=== PATIENT | male | born 1965 | race Caucasian/White ===

== ENCOUNTER 2018-11-02 14:44 | Emergency (ER) | payer OTHER ==
[~2018-11-02] VITALS: Ht 182.9 cm; Wt 77.1 kg
[2018-11-02] MEDS ORDERED: ZOCOR20 MG PO (14:52)
[2018-11-02] MEDS ORDERED: MAGOX 400400 MG PO (14:55)
[2018-11-02] MEDS ORDERED: COQ1050 MG PO (14:56)
[2018-11-02] MEDS ORDERED: VITAMIN D3400 UNIT PO (14:56)
[2018-11-02] MEDS ORDERED: SUPER B-50 COM1 EACH PO (14:56)
[2018-11-02 15:11] LABS: ABSOLUTE BASOPHILS 0.1 thou/uL (0.0-0.2); ABSOLUTE EOSINOPHILS 0.1 thou/uL (0.0-0.7); ABSOLUTE LYMPHOCYTES 5.4 thou/uL (0.8-5.3); ABSOLUTE MONOCYTES 1.3 thou/uL (0.0-1.2); ABSOLUTE NEUTROPHILS 5.4 thou/uL (1.6-8.1); BASOPHILS 0.5 %; EOSINOPHILS 1.2 %; HEMATOCRIT 52.2 % (42.0-52.0); LYMPHOCYTES 44.2 %; MCH 31.8 pg (26.0-34.0); MCHC 34.5 g/dL (28.0-37.0); MCV 92.2 fL (80.0-100.0); MONOCYTES 10.5 %; MPV 8.5 fl. (7.2-11.1); NUCLEATED RBCS 0 /100WBC; PLATELET COUNT* 218 thou/uL (150-400); POLYS 43.6 %; RBC 5.66 mil/uL (4.50-6.00); RDW-CV 12.8 % (10.5-14.5); WBC 12.3 thou/uL (4.0-11.0)
[2018-11-02 15:18] LABS: ANION GAP 10 mmol/L (7-16); BUN 18 mg/dL (7-18); CALCIUM 9.4 mg/dL (8.5-10.1); CHLORIDE 102 mmol/L (98-107); CO2 25 mmol/L (21-32); CREATININE 1.1 mg/dL (0.6-1.3); GLUCOSE 121 mg/dL (70-99); POTASSIUM 3.7 mmol/L (3.5-5.1); SODIUM 137 mmol/L (136-145)
[2018-11-02 15:27] LABS: INR 1.1; PROTIME 11.2 Seconds (9.20-11.50)
[2018-11-02 15:29] LABS: ALBUMIN 3.5 g/dL (3.4-5.0); ALKALINE PHOSPHATASE 88 U/L (46-116); LIPASE 318 U/L (73-393); NT-PRO BRAIN NAT PEPTIDE 18 pg/mL (<300); SGOT 18 U/L (15-37); SGPT 46 U/L (30-65); TOTAL BILIRUBIN 0.3 mg/dL (<0.1-1.0); TOTAL PROTEIN 7.5 g/dL (6.4-8.2); TROPONIN-I LEVEL <0.06 ng/mL (<0.06)
[2018-11-02] MEDS ORDERED: ATIVAN1 MG PO (16:30)
[2018-11-02 16:40] VITALS: BP 115/72
--- NOTE | 2018-11-02 16:47 | EKG ---
[place] [address] ELECTROCARDIOGRAM REPORT Name: ANTHONY CARREON Room: [facility]#: [id number] Admission: 11/02/18 Attend Phys: Discharge: 11/02/18 Date of : 65 Report #: [id number] THIS REPORT FOR: //name// [facility] ED Test Date: 2018-11-02 Test Time: 14:48:47 Pat Name: ANTHONY CARREON Department: Room: Gender: Actuarial Analyst: Naveen PEOPLES : 1965 Requested By: Tree Oleary Order Number: [id number] MD: Ba Morrison Measurements Intervals Union Rate: 138 P: 48 VT: 80 QRS: 80 QRSD: 92 T: 24 QT: 318 QTc: 482 Interpretive Statements Sinus tachycardia No previous ECG available for comparison Electronically Signed On 11-02-2018 16:46:49 [employer]GER by Ba Morrison [email or web address] <ELECTRONICALLY SIGNED> By: Ba Morrison MD, [facility] 11/02/18 1646 [id number] [id number] Ba Morrison MD, FACC /EPI
== END 2018-11-02 16:41 | disposition home or self-care (01) ==
LOC: M.ERS 14:44
PROVIDERS: Emergency Medicine
DX: R00.2 Palpitations (principal); F17.210 Nicotine dependence, cigarettes, uncomplicated